=== PATIENT | female | born 1980 | race African-American/Black ===

== ENCOUNTER 2019-07-04 01:11 | Emergency (ER) | payer OTHER ==
[~2019-07-04] VITALS: Ht 165.1 cm; Wt 74.8 kg
[2019-07-04] MEDS ORDERED: BENADRYL25 MG PO (01:29)
[2019-07-04 02:11] VITALS: BP 178/93
== END 2019-07-04 02:13 | disposition home or self-care (01) ==
LOC: ER 01:11
DX: L29.9 Pruritus, unspecified (principal); T36.3X5A Adverse effect of macrolides, initial encounter; Y92.89 Other specified places as the place of occurrence of the external cause